=== PATIENT | female | born 1980 | race Caucasian/White ===

== ENCOUNTER 2022-09-08 08:48 | Outpatient (RCR) | payer OTHER, SELFPAY ==
[2022-09-08 09:02] VITALS: BP 108/76; PULSE 76; RESP 20; TEMP 35.9; BMI 29.0
--- NOTE | 2022-09-08 09:34 | PCM.WC.HP ---
History of Present Illness Date of Service: 09/08/22 Chief Complaint: Right dorsal lateral foot laceration History of Wound: Patient is a 42-year-old female who lives in the [facility]. She is otherwise pleasant and healthy. States injury occurred on 08/04/2022 in which a lawnmower accident struck her right foot. She went to [facility] ED and underwent laceration repair along with tetanus booster. Sutures were removed and wound did dehisce. She was placed on cephalexin and did complete oral antibiotic course. Had been using antibiotic ointment and some peroxide for cleaning but did stop peroxide a week ago. She was following with Dr. Amadeo White who has referred her to the wound care center after 4 weeks of treatment. Wound healing is noted to be delayed. She denies any N/V/F/chills. Denies further complaints. [facility] Social History Smoking Status: Never smoker ROS Constitutional Constitutional: Denies chills, fatigue or fever(s) Eyes Eyes: Denies change in vision, double vision or erythema ENT HEENT: Denies dysphagia, nasal congestion or sore throat Cardiovascular Cardiovascular: Denies chest pain, claudication or palpitations Respiratory/Chest Respiratory/Chest: Denies cough, shortness of breath with exertion or wheezing Gastrointestinal Gastrointestinal: Denies abdominal pain, constipation, diarrhea, nausea or vomiting Genitourinary Genitourinary: Denies dysuria, urinary frequency, urinary hesitancy, urinary incontinence or urinary urgency Musculoskeletal Musculoskeletal: Denies joint pain, joint stiffness or joint swelling Integumentary Integumentary: Denies lesions, pruritus or rash Neurologic Neurologic: Denies dizziness, numbness or seizures Endocrine Endocrinology: Denies cold intolerance or heat intolerance Hematologic/Lymphatic Hematologic/Lymphatic: Denies easy bleeding or easy bruising Vital Signs Vital Signs Vital Signs: 09/08/22 09:02 Temperature 96.7 F L Temperature Source Temporal Pulse Rate 76 Respiratory Rate 20 H Blood Pressure 108/76 Blood Pressure Mean 86 Blood Pressure Source Monitor Weight Weight: 86.581 kg Body Mass Index (BMI) 29.0 Physical Exam Const alert, oriented x3 and no apparent distress General Appearance: cooperative HEENT normocephalic Eyes General Eye: normal appearance of both eyes Neck General: normal visual inspection Lymph Lymphatic: no lymphadenopathy noted and no lymphedema noted Resp normal respiratory effort Cardio regular rate and regular rhythm Extremity normal capillary refill, no joint enlargement, no calf tenderness and no pedal edema Extremity Narrative: DP and PT pulses palpable to the right foot. Capillary fill time is brisk to digits. Dermatological: Skin appears well-hydrated with no rashes or lesions. There is a dorsal lateral right foot laceration extending lateral to medial overlying the tarsometatarsal joint. Most medial aspect of the laceration is well coapted and healed. Lateral aspect does demonstrate dehiscence with small wound present with healthy granular base. There is mild rubor about the laceration site with no increased temperature. No purulent drainage, no malodor, no palpable fluctuance/bogginess noted, no visible abscess formation, no lymphangitic streaking. Musculoskeletal: Muscle strength 5 of 5 age-appropriate. Full, smooth, pain-free range of motion of the ankle joint, subtalar joint, midtarsal joint, and first metatarsophalangeal joint. Skin no rashes or lesions noted, skin turgor normal and no jaundice Neuro moves all extremities Debridement Note Debridement Note Wound debrided: Right foot Laterality: Right Wound Grade/Stage: Hartman stage I Type of Debridement: Excisional debridement Anesthesia Used: 5% Lidocaine Gel Depth: Down to and including healthy tissue and in the subcutaneous layer Percentage of wound debrided: 100 Instrument Used: 3mm curette Tissue Removed: Fibrous, devitalized subcutaneous, biofilm, slough Severity: Fat Layer Exposed Amount of bleeding with debridement: Mild Bleeding Controlled with: Compression and gauze Patient tolerated procedure: Patient tolerated procedure well Post-Debridement Measurements and Additional Note: Post-Debridement Measurements/Treatment MARK - Nurse 1 - General Ulcer Assessment Start: 09/08/22 08:59 Freq: Status: Active Protocol: MARITZA Activity Type Activity Date Activity User E-sign Co-sign Detail Recorded Client Recorded Date Recorded By Document 09/08/22 09:02 HONORIO [id number] 09/08/22 09:17 DL 09/08/22 09:02 - Today's Visit Information Type of service Initial Visit Arrival Mode Ambulatory Transfer Assistance None Patient Identification Verified (Name & Yes ) Patient Requires Transmission-Based No Precautions Height and Weight Height 5 ft 8 in Weight 86.581 kg Weight in Pounds 190.9 lbs Body Mass Index (BMI) 29.0 BMI Classification Overweight BSA - Errol 2.00 Vital Signs Temperature (97.8 F-99.1 F) 96.7 F L Temperature Source Temporal Pulse Rate (60-100) 76 Pulse Location Monitor Respiratory Rate (12-18) 20 H Respiratory rate source Observation Blood Pressure (90/60-120/80) 108/76 Blood Pressure Mean 86 Source Monitor Pain Scale: 0-10 Numeric Is Patient Pain Free? 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 Required No Able to Read Yes Able to Write Yes Communication Tools None Right Hearing Abillity Normal Left Hearing Abillity Normal Visual Assistive Devices Glasses Teaching Assessment Preferences Verbal,Written, Demonstration Barriers to Learning None Readiness To Learn Good Willingness to Engage in Self Management Med Activies Readiness to Engage in Self Management Med Activities Anxiety Level Calm Cooperation Cooperative Perception Coherent Interest in Health Problem Asks Questions Education Importance Acknowledges Need Does Patient Smoke tobacco or other No substances Smoking Status Never smoker Is Patient Diabetic No Functional Assessment Recent Decline in Ability to Perform Denies Any Declines 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 Operator to contact place of alevism No Teaching: Wound Center Foot Care -Person Taught Patient Dressing Your Wound -Person Taught Patient Discharge Instructions -Person Taught Patient *Welcome to the Wound Center -Person Taught Patient WC - Nurse 1 - General Ulcer Measurement Start: 09/08/22 08:59 Freq: Status: Active Protocol: Activity Type Activity Date Activity User E-sign Co-sign Detail Recorded Client Recorded Date Recorded By Document 09/08/22 09:02 [id number] 09/08/22 09:17 DL 09/08/22 09:02 Wound Center Nurse 1 #1 R Lat foot -Current Size (cm) - Length 0.6 -Current Size (cm) - Width 1.4 -Current Size (cm) - Depth 0.2 -Total Square Cm 0.84 -Photo Taken Yes -Exudate Amt Small -Exudate Type Serosanguineous -Wound Margin Distinct, Outline Attached -Granulation Amt Large (67-100%) -Granulation Quality Pale,[place] -Necrosis Amt Small (1-33%) -Necrotic Tissue Type Adherent Slough -Structure Exposed N/A -Texture (Sri-wound Skin Appearance) Localized Edema ,Scarring -Moisture (Sri-wound Skin Appearance) No Abnormality -Color (Sri-wound Skin Appearance) Erythema -Temperature (Sri-wound Skin No Abnormality Appearance) (Pt Warm) -Tenderness on Palpation (Sri-wound No Skin Appearance) -Ulcer Cleansing Soap and Water -Foul Odor after Cleansing No -Anesthetic Used 5% Lidocaine Gel Right Calf (cm) 39 Right Ankle (cm) 22 Left Calf (cm) 39.5 Left Ankle (cm) 21.5 Assessment/Plan Assessment/Plan (1) Laceration without foreign body, right foot, initial encounter: CODE(S): S91.311A - Laceration without foreign body, right foot, initial encounter (2) Non-pressure chronic ulcer of other part of right foot with fat layer exposed: CODE(S): L97.512 - Non-pressure chronic ulcer of other part of right foot with fat layer exposed (3) Pain in right foot: CODE(S): M79.671 - Pain in right foot PLAN: Plan Patient seen and evaluated Ulceration noted to the right foot underwent debridement as noted in the clinical panel above. Postdebridement ulceration measured 0.5 cm x 1.5 cm x 0.2 cm. No signs of infection. Ulcerative site underwent application of Valerie and dressed with dry sterile dressing. She will change dressing daily. Discussed with her weekly debridement with application of Valerie/collagen based product to boost wound healing to continue to aid the laceration and closure. Currently medial half has healed and only the most lateral portion remains open at this time. Discussed elevating foot at times of rest to aid in edema control. Discussed adequate diet and protein intake to aid in wound healing. She does have adequate DP and PT pulses with adequate capillary fill time. I do not feel the vascular status is impacting wound healing. The following work up and care recommendations were made: Dressing: Valerie and dry sterile dressing Wash: Soap and water Tissue growth optimization: Valerie Offload: Ensure shoe gear does not rub or contact laceration site Vascular: Do not feel vascular status is impacting wound healing as she does have adequate blood flow and palpable pulses. Edema: No edema noted Infection: No signs of infection Pain: May take [id number] Tylenol for discomfort Host factors: None I answered all the patient's questions. To return to the wound healing center in 1 week or call sooner if the patient has any questions or concerns.
== END 2022-09-09 23:59 | disposition home or self-care (01) ==
LOC: WC 08:48
PROVIDERS: PCP Family Medicine; Referring Provider Orthopaedic Surgery; Visit Provider Student in an Organized Health Care Education/Training Program
DX: L97.512 Non-pressure chronic ulcer of other part of right foot with fat layer exposed (principal); S91.311S Laceration without foreign body, right foot, sequela; M79.671 Pain in right foot; W27 Contact with nonpowered hand tool
CPT/HCPCS: 11042; 99213; G0463

== ENCOUNTER 2022-09-29 09:15 | Outpatient (RCR) | payer OTHER, SELFPAY ==
[2022-09-10 01:45] VITALS: BP 108/76; PULSE 76; RESP 20; TEMP 35.9; BMI 29.0
[2022-09-15 10:09] VITALS: BP 102/63; PULSE 70; TEMP 35.7; BMI 29.0
--- NOTE | 2022-09-15 12:31 | PN.PCM_ITS ---
History of Present Illness Date of Service: 09/15/22 Chief Complaint: Right dorsal lateral foot laceration History of Wound: Patient is a 42-year-old female who lives in the [facility]. She is otherwise pleasant and healthy. States injury occurred on 08/04/2022 in which a lawnmower accident struck her right foot. She went to [facility] ED and underwent laceration repair along with tetanus booster. Sutures were removed and wound did dehisce. She was placed on cephalexin and did complete oral antibiotic course. Had been using antibiotic ointment and some peroxide for cleaning but did stop peroxide a week ago. She was following with Dr. Amadeo White who has referred her to the wound care center after 4 weeks of treatment. Wound healing is noted to be delayed. She denies any N/V/F/chills. Denies further complaints. Subjective Subjective This is a 42-year-old female who follows to the wound care center today for traumatic right foot wound secondary to lawnmower injury. She has been changing the dressings to the top of the foot daily. She denies any pain to the foot today. Denies constitutional symptoms. Denies further complaints. Objective Data Objective Data Vital Signs: Vital Signs Temp Pulse Resp BP 96.2 F L 70 20 H 102/63 09/15/22 10:09 09/15/22 10:09 09/10/22 01:45 09/15/22 10:09 Weight: 86.581 kg Body Mass Index (BMI) 29.0 Physical Exam Const alert, oriented x3 and no apparent distress General Appearance: cooperative HEENT normocephalic Eyes General Eye: normal appearance of both eyes Neck General: normal visual inspection Lymph Lymphatic: no lymphadenopathy noted and no lymphedema noted Resp normal respiratory effort Cardio regular rate and regular rhythm Extremity normal capillary refill, no joint enlargement, no calf tenderness and no pedal edema Extremity Narrative: DP and PT pulses palpable to the right foot. Capillary fill time is brisk to digits. Dermatological: Skin appears well-hydrated with no rashes or lesions. There is a dorsal lateral right foot laceration extending lateral to medial overlying the tarsometatarsal joint. Most medial aspect of the laceration is well coapted and healed. Lateral aspect does demonstrate dehiscence with small wound present with healthy granular base. There is mild rubor about the laceration site with no increased temperature. No purulent drainage, no malodor, no palpable fluctuance/bogginess noted, no visible abscess formation, no lymphangitic streaking. Musculoskeletal: Muscle strength 5 of 5 age-appropriate. Full, smooth, pain- free range of motion of the ankle joint, subtalar joint, midtarsal joint, and first metatarsophalangeal joint. Skin no rashes or lesions noted, skin turgor normal and no jaundice Neuro moves all extremities Debridement Note Debridement Note Wound debrided: Right foot Laterality: Right Wound Grade/Stage: Hartman stage I Type of Debridement: Excisional debridement Anesthesia Used: 5% Lidocaine Gel Depth: Down to and including healthy tissue and in the subcutaneous layer Percentage of wound debrided: 100 Instrument Used: 3mm curette Tissue Removed: Fibrous, devitalized subcutaneous, biofilm, slough Severity: Fat Layer Exposed Amount of bleeding with debridement: Mild Bleeding Controlled with: Compression and gauze Patient tolerated procedure: Patient tolerated procedure well Post-Debridement Measurements and Additional Note: Post-Debridement Measurements/Treatment - Nurse 1 - General Ulcer Assessment Start: 09/15/22 10:09 Freq: Status: Active Protocol: MARK.HENNY Activity Type Activity Date Activity User E-sign Co-sign Detail Recorded Client Recorded Date Recorded By Document 09/15/22 10:09 MARY ALICE [id number] 09/15/22 10:12 MARY ALICE 09/15/22 10:09 - Today's Visit Information Type of service Follow-up Visit (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 Any new allergies or adverse reactions No Had a fall/change in ADL's that may No increase risk of falls Signs or symptoms of abuse and/or No neglect since last visit Have you been in the hospital since your No last visit? Has dressing in place as prescribed Yes Has compression in place as prescribed N/A Has offloadiing in place as prescribed N/A Experienced any changes in pain level or No management Left Footwear Regular Shoe Right Footwear Regular Shoe Pain Scale: 0-10 Numeric Is Patient Pain Free? Yes WC - Nurse 1 - General Ulcer Measurement Start: 09/15/22 10:09 Freq: Status: Active Protocol: Activity Type Activity Date Activity User E-sign Co-sign Detail Recorded Client Recorded Date Recorded By Document 09/15/22 10:09 AK [id number] 09/15/22 10:12 AK 09/15/22 10:09 Wound Center Nurse 1 #1 R Lat foot -Combined with other wound No -Wound Comment(s) soaking the wound in lidocain. can't measure because of dressing inside WC - Nurse 2 - General Ulcer CM Notes Start: 09/15/22 10:09 Freq: Status: Active Protocol: Activity Type Activity Date Activity User E-sign Co-sign Detail Recorded Client Recorded Date Recorded By Document 09/15/22 11:59 PL [id number] 09/15/22 11:59 PL 09/15/22 11:59 Wound Center Nurse 2 -Time 10:17 -Correct Patient Yes -Correct Side, Site, Position Yes -Correct Procedure Yes -Procedure Performed Yes -Type of Procedure Debridement -Clinical Debridement Subcutaneous -Tissue Removed Subcutaneous -Post Debridement (cm) - Length 0.2 -Post Debridement (cm) - Width 0.7 -Post Debridement (cm) - Depth 0.2 -Total Square (Post) (cm) 0.14 -Area of Debridement (cm) - Length 0.2 -Area of Debridement (cm) - Width 0.7 -Total Square (Area) (cm) 0.14 -Tunneling No -Undermining/Tunneling No -Circular Undermining No -Wound/Ulcer Outcome Not Healed -Ulcer Cleansing Rinsed/ Irrigated with Saline -Foul Odor after Cleansing No -Bioengineered Tissue No -Bleeding Controlled with Pressure -Treatment Response Procedure Tolerated Well -Debridement - Subq, 1st 20sq cm Yes Pain Scale: 0-10 Numeric Is Patient Pain Free? Yes WC - Nurse 3 - General Ulcer D/C NN Start: 09/15/22 10:09 Freq: Status: Active Protocol: Activity Type Activity Date Activity User E-sign Co-sign Detail Recorded Client Recorded Date Recorded By Document 09/15/22 10:23 KW [id number] 09/15/22 10:24 KW 09/15/22 10:23 Wound Care Center Nurse 3 #1 R Lat foot -Ulcer Cleansing Rinsed/ Irrigated with Saline -Primary Dressing Covered/Secured with Dry Gauze, Secured with Tape Pain Scale: 0-10 Numeric Is Patient Pain Free? Yes WC - Visit Discharge Discharge Condition Stable Ambulatory Status Ambulatory Transportation Private Auto Medication Reconcilliation completed & No provided to patient/care provider Clinical Summary of Care Provided No Assessment/Plan Assessment/Plan (1) Non-pressure chronic ulcer of other part of right foot with fat layer exposed: CODE(S): L97.512 - Non-pressure chronic ulcer of other part of right foot with fat layer exposed (2) Laceration without foreign body, right foot, initial encounter: CODE(S): S91.311A - Laceration without foreign body, right foot, initial encounter (3) Pain in right foot: CODE(S): M79.671 - Pain in right foot PLAN: Plan Patient seen and evaluated Ulceration noted to the right foot underwent debridement as noted in the clinical panel above. Postdebridement ulceration measured 0.2 cm x 0.7 cm x 0.2 cm. No signs of infection. Ulcerative site underwent application of Valerie and dressed with dry sterile dressing. She will change dressing daily. Ulceration did undergo reduction in size versus previous visit Discussed with her weekly debridement with application of Valerie/collagen based product to boost wound healing to continue to aid the laceration and closure. Currently medial half has healed and only the most lateral portion remains open at this time. Wound is healing and prognosis is good. Discussed elevating foot at times of rest to aid in edema control. Discussed adequate diet and protein intake to aid in wound healing. She does have adequate DP and PT pulses with adequate capillary fill time. I do not feel the vascular status is impacting wound healing. The following work up and care recommendations were made: Dressing: Valerie and dry sterile dressing Wash: Soap and water Tissue growth optimization: Valerie Offload: Ensure shoe gear does not rub or contact laceration site Vascular: Do not feel vascular status is impacting wound healing as she does have adequate blood flow and palpable pulses. Edema: No edema noted Infection: No signs of infection Pain: May take [id number] Tylenol for discomfort Host factors: None I answered all the patient's questions. To return to the wound healing center in 1 week or call sooner if the patient has any questions or concerns.
[2022-09-29 09:18] VITALS: BP 132/69; PULSE 68; TEMP 35.6; BMI 29.0
--- NOTE | 2022-09-29 09:19 | PN.PCM_ITS ---
History of Present Illness Date of Service: 09/29/22 Chief Complaint: Right dorsal lateral foot laceration History of Wound: Patient is a 42-year-old female who lives in the [facility]. She is otherwise pleasant and healthy. States injury occurred on 08/04/2022 in which a lawnmower accident struck her right foot. She went to [facility] ED and underwent laceration repair along with tetanus booster. Sutures were removed and wound did dehisce. She was placed on cephalexin and did complete oral antibiotic course. Had been using antibiotic ointment and some peroxide for cleaning but did stop peroxide a week ago. She was following with Dr. Amadeo White who has referred her to the wound care center after 4 weeks of treatment. Wound healing is noted to be delayed. She denies any N/V/F/chills. Denies further complaints. Subjective Subjective This is a 42-year-old female who follows to the wound care center today for traumatic right foot wound secondary to lawnmower injury. She has been changing the dressings to the top of the foot daily. She denies any pain to the foot today. She feels that the wound may be fully closed. Denies constitutional symptoms. Denies further complaints. Objective Data Objective Data Vital Signs: Vital Signs Temp Pulse Resp BP 96.2 F L 70 20 H 102/63 09/15/22 10:09 09/15/22 10:09 09/10/22 01:45 09/15/22 10:09 Weight: 86.581 kg Body Mass Index (BMI) 29.0 Physical Exam Const alert, oriented x3 and no apparent distress General Appearance: cooperative HEENT normocephalic Eyes General Eye: normal appearance of both eyes Neck General: normal visual inspection Lymph Lymphatic: no lymphadenopathy noted and no lymphedema noted Resp normal respiratory effort Cardio regular rate and regular rhythm Extremity normal capillary refill, no joint enlargement, no calf tenderness and no pedal edema Extremity Narrative: DP and PT pulses palpable to the right foot. Capillary fill time is brisk to digits. Dermatological: Skin appears well-hydrated with no rashes or lesions. There is a dorsal lateral right foot laceration extending lateral to medial overlying the tarsometatarsal joint. Laceration is well coapted and has healed. There is mild rubor about the laceration site with no increased temperature. No purulent drainage, no malodor, no palpable fluctuance/bogginess noted, no visible abscess formation, no lymphangitic streaking. Musculoskeletal: Muscle strength 5 of 5 age-appropriate. Full, smooth, pain- free range of motion of the ankle joint, subtalar joint, midtarsal joint, and first metatarsophalangeal joint. Skin no rashes or lesions noted, skin turgor normal and no jaundice Neuro moves all extremities Debridement Note Debridement Note No debridement was completed: No debridement was completed today Post-Debridement Measurements and Additional Note: Post-Debridement Measurements/Treatment WC - Nurse 1 - General Ulcer Assessment Start: 09/15/22 10:09 Freq: Status: Active Protocol: IGLESIAEXJanny Activity Type Activity Date Activity User E-sign Co-sign Detail Recorded Client Recorded Date Recorded By Document 09/15/22 10:09 MARY ALICE [id number] 09/15/22 10:12 MARY ALICE 09/15/22 10:09 MARK - Today's Visit Information Type of service Follow-up Visit (Physician/[employer] ) Arrival Mode Ambulatory Patient Identification Verified (Name & Yes ) Patient Requires Transmission-Based No Precautions Safety Precautions NA Height and Weight Body Mass Index (BMI) 29.0 BMI Classification Overweight Vital Signs Temperature (97.8 F-99.1 F) 96.2 F L Temperature Source Temporal Pulse Rate (60-100) 70 Pulse Location Monitor Blood Pressure (90/60-120/80) 102/63 Blood Pressure Mean (mm Hg) 76 Source Monitor History Since Last Visit- (Skip if this is Patient's initial visit) Have you changed medications since your No last visit? Any new allergies or adverse reactions No Had a fall/change in ADL's that may No increase risk of falls Signs or symptoms of abuse and/or No neglect since last visit Have you been in the hospital since your No last visit? Has dressing in place as prescribed Yes Has compression in place as prescribed N/A Has offloadiing in place as prescribed N/A Experienced any changes in pain level or No management Left Footwear Regular Shoe Right Footwear Regular Shoe Pain Scale: 0-10 Numeric Is Patient Pain Free? Yes MARK - Nurse 1 - General Ulcer Measurement Start: 09/15/22 10:09 Freq: Status: Active Protocol: Activity Type Activity Date Activity User E-sign Co-sign Detail Recorded Client Recorded Date Recorded By Document 09/15/22 10:09 AK [id number] 09/15/22 10:12 AK 09/15/22 10:09 Wound Center Nurse 1 #1 R Lat foot -Combined with other wound No -Wound Comment(s) soaking the wound in lidocain. can't measure because of dressing inside - Nurse 2 - General Ulcer CM Notes Start: 09/15/22 10:09 Freq: Status: Active Protocol: Activity Type Activity Date Activity User E-sign Co-sign Detail Recorded Client Recorded Date Recorded By Document 09/15/22 11:59 PL [id number] 09/15/22 11:59 PL 09/15/22 11:59 Wound Center Nurse 2 -Time 10:17 -Correct Patient Yes -Correct Side, Site, Position Yes -Correct Procedure Yes -Procedure Performed Yes -Type of Procedure Debridement -Clinical Debridement Subcutaneous -Tissue Removed Subcutaneous -Post Debridement (cm) - Length 0.2 -Post Debridement (cm) - Width 0.7 -Post Debridement (cm) - Depth 0.2 -Total Square (Post) (cm) 0.14 -Area of Debridement (cm) - Length 0.2 -Area of Debridement (cm) - Width 0.7 -Total Square (Area) (cm) 0.14 -Tunneling No -Undermining/Tunneling No -Circular Undermining No -Wound/Ulcer Outcome Not Healed -Ulcer Cleansing Rinsed/ Irrigated with Saline -Foul Odor after Cleansing No -Bioengineered Tissue No -Bleeding Controlled with Pressure -Treatment Response Procedure Tolerated Well -Debridement - Subq, 1st 20sq cm Yes Pain Scale: 0-10 Numeric Is Patient Pain Free? Yes - Nurse 3 - General Ulcer D/C NN Start: 09/15/22 10:09 Freq: Status: Active Protocol: Activity Type Activity Date Activity User E-sign Co-sign Detail Recorded Client Recorded Date Recorded By Document 09/15/22 10:23 [id number] 09/15/22 10:24 KW 09/15/22 10:23 Wound Care Center Nurse 3 #1 R Lat foot -Ulcer Cleansing Rinsed/ Irrigated with Saline -Primary Dressing Covered/Secured with Dry Gauze, Secured with Tape Pain Scale: 0-10 Numeric Is Patient Pain Free? Yes WC - Visit Discharge Discharge Condition Stable Ambulatory Status Ambulatory Transportation Private Auto Medication Reconcilliation completed & No provided to patient/care provider Clinical Summary of Care Provided No Assessment/Plan Assessment/Plan (1) Non-pressure chronic ulcer of other part of right foot with fat layer exposed: CODE(S): L97.512 - Non-pressure chronic ulcer of other part of right foot with fat layer exposed (2) Laceration without foreign body, right foot, initial encounter: CODE(S): S91.311A - Laceration without foreign body, right foot, initial encounter (3) Pain in right foot: CODE(S): M79.671 - Pain in right foot PLAN: Plan Patient seen and evaluated Ulcerative site has healed today with no signs of infection. She was instructed to cover site with dry sterile dressing for protection for the next 7 to 10 days as the skin is still fragile. Discussed elevating foot at times of rest to aid in edema control. Discussed adequate diet and protein intake to aid in continued wound healing. She does have adequate DP and PT pulses with adequate capillary fill time. I do not feel the vascular status is impacting wound healing. The following work up and care recommendations were made: Dressing: Dry sterile dressing Wash: Soap and water Tissue growth optimization: None Offload: Ensure shoe gear does not rub or contact laceration site Vascular: Do not feel vascular status is impacting wound healing as she does have adequate blood flow and palpable pulses. Edema: No edema noted Infection: No signs of infection Pain: May take [id number] Tylenol for discomfort Host factors: None Given that she is healed she will be discharged from the wound care center today. She is pleased with her healing progress. I answered all the patient's questions. To return to the wound healing center in as needed or call sooner if the patient has any questions or concerns.
== END 2022-09-29 16:13 | disposition home or self-care (01) ==
LOC: WC 09:15
PROVIDERS: PCP Family Medicine; Referring Provider Orthopaedic Surgery; Visit Provider Student in an Organized Health Care Education/Training Program
DX: L97.512 Non-pressure chronic ulcer of other part of right foot with fat layer exposed (principal); S91.311S Laceration without foreign body, right foot, sequela; W27 Contact with nonpowered hand tool
CPT/HCPCS: 11042; 99213; G0463